=== PATIENT | female | born 2000 | race American Indian/Alaskan Native ===

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

== ENCOUNTER 2021-05-25 07:28 | Emergency (ER) | payer MEDICAID, OTHER ==
[2021-05-25 09:04] LABS: Basophils % (Auto) 0.4 % (0.0-1.8); Eosinophils % (Auto) 0.2 % (0.0-4.3); Hematocrit 27.7 % (30.3-42.9); Hemoglobin 8.7 gm/dl (10.1-14.3); Lymphocytes # (Auto) 1.3 K/mm3 (1.2-5.4); Lymphocytes % (Auto) 13.9 % (13.4-35.0); Mean Corpuscular HGB Conc 31 % (30-34); Monocytes # (Auto) 0.7 K/mm3 (0.0-0.8); Monocytes % (Auto) 7.6 % (0.0-7.3); Platelet Count 225 K/mm3 (140-440); Red Blood Count 4.01 M/mm3 (3.65-5.03); Red Cell Distribution Width 19.1 % (13.2-15.2)
[2021-05-25 09:11] LABS: Mean Corpuscular Volume 69 fl (79-97)
[2021-05-25 09:20] LABS: Bacteria,Urine 1+ /HPF (Negative); Bilirubin,Urine NEG (Negative); Blood,Urine MOD (Negative); Color,Urine Yellow (Yellow); Mucus,Urine FEW /HPF; Urobilinogen,Urine < 2.0 mg/dL (<2.0)
[2021-05-25 09:22] LABS: WBC,Urine > 182.0 /HPF (0.0-6.0)
[2021-05-25 09:26] LABS: HCG Qualitative,Urine Positive (Negative)
[2021-05-25 09:28] LABS: Alanine Aminotransferase 11 units/L (7-56); Albumin 4.5 g/dL (3.9-5); Blood Urea Nitrogen 5 mg/dL (7-17); Calcium 9.3 mg/dL (8.4-10.2); Hemolysis Index 2
[2021-05-25 09:39] LABS: BUN/Creatinine Ratio 8
--- NOTE | 2021-05-25 09:40 | Emergency Department Report ---
ED HPI - General Chief complaint: Abdominal Pain Stated complaint: , ABD PAIN, BACK PAIN Time Seen by Provider: 05/25/21 08:24 Source: patient Mode of arrival: Ambulatory Limitations: No Limitations - History of Present Illness Initial comments: 21-year-old -[place] female patient presents with complaints of sudden onset of lower abdominal pain and vomiting last night. She states she had a positive test at home and estimates she is 4 weeks . She is not currently following with an RIGGER. She rates her current pain as a 10/10 in severity and states it is worse on the left left lower abdomen. Patient is G2, . Patient does admit to some vaginal spotting a few days ago. She also states she has had vaginal discharge and dyspareunia. No dysuria/hematuria or urinary frequency per patient. Past medical history includes CHF, AR, and open heart surgery. No hematemesis/coffee-ground emesis or stool changes per patient. MD Complaint: abdominal pain - Related Data Previous Rx's Medication Instructions Recorded Last Taken Type Ferrous Sulfate [Feosol 325 MG tab] 325 mg PO BID 30 Days #60 tablet 09/23/19 Unknown Rx Hyoscyamine Subl [Levsin Sl 0.125 0.125 mg SL Q4HR PRN #20 tablet 05/27/20 Unknown Rx TAB] Ondansetron [Zofran ODT TAB] 4 mg PO Q8HR #30 tab.rapdis 05/27/20 Unknown Rx Ketorolac [Toradol] 10 mg PO Q6H PRN #15 tablet 08/12/20 Unknown Rx Linezolid 600 mg PO BID #20 tablet 08/30/20 Unknown Rx oxyCODONE /ACETAMINOPHEN [Percocet 1 tab PO Q6HR PRN #14 tablet 08/30/20 Unknown Rx 5/325] Acetaminophen/Codeine [Tylenol 1 tab PO Q8H PRN #8 tab 05/25/21 Unknown Rx /Codeine # 3 tab] Clindamycin [Clindamycin CAP] 450 mg PO Q6HR 14 Days #224 capsule 05/25/21 Unknown Rx Allergies Allergy/AdvReac Type Severity Reaction Status Date / Time No Known Allergies Allergy Verified 08/25/19 23:18 ED Review of Systems ROS: Stated complaint: , ABD PAIN, BACK PAIN Other details as noted in HPI Constitutional: denies: chills, diaphoresis, fever, malaise, weakness Respiratory: denies: cough, shortness of breath Cardiovascular: denies: chest pain Gastrointestinal: abdominal pain, nausea, vomiting. denies: diarrhea, constipation, hematemesis, melena, hematochezia Genitourinary: discharge, abnormal menses, dyspareunia. denies: urgency, dysuria, frequency, hematuria Musculoskeletal: denies: back pain Skin: denies: rash, lesions Hematological/Lymphatic: denies: swollen glands ED Past Medical Hx - Past Medical History Hx Hypertension: Yes Hx Heart Attack/AMI: Yes (2000) Hx Congestive Heart Failure: Yes (2000) Hx Diabetes: No Hx Deep Vein Thrombosis: No Hx Renal Disease: No Hx Sickle Cell Disease: No Hx Seizures: No Hx Asthma: No Hx COPD: No Hx HIV: No Additional medical history: heart surgery - Surgical History Additional Surgical History: Open heart surgery - Social History Smoking Status: Never Smoker Substance Use Type: None - Medications Home Medications: Home Medications Medication Instructions Recorded Confirmed Last Taken Type Ferrous Sulfate [Feosol 325 MG tab] 325 mg PO BID 30 Days #60 tablet 09/23/19 08/29/20 Unknown Rx Hyoscyamine Subl [Levsin Sl 0.125 0.125 mg SL Q4HR PRN #20 tablet 05/27/20 08/29/20 Unknown Rx TAB] Ondansetron [Zofran ODT TAB] 4 mg PO Q8HR #30 tab.rapdis 05/27/20 08/29/20 Unknown Rx Ketorolac [Toradol] 10 mg PO Q6H PRN #15 tablet 08/12/20 08/29/20 Unknown Rx Linezolid 600 mg PO BID #20 tablet 08/30/20 Unknown Rx oxyCODONE /ACETAMINOPHEN [Percocet 1 tab PO Q6HR PRN #14 tablet 08/30/20 Unknown Rx 5/325] Acetaminophen/Codeine [Tylenol 1 tab PO Q8H PRN #8 tab 05/25/21 Unknown Rx /Codeine # 3 tab] Clindamycin [Clindamycin CAP] 450 mg PO Q6HR 14 Days #224 capsule 05/25/21 Unknown Rx ED Physical Exam - General Limitations: No Limitations General appearance: alert, in no apparent distress (Patient does appear uncomfortable) - Head Head exam: Present: atraumatic, normocephalic - Eye Eye exam: Present: normal appearance. Absent: scleral icterus - Respiratory Respiratory exam: Present: normal lung sounds bilaterally. Absent: respiratory distress - Cardiovascular Cardiovascular Exam: Present: regular rate, normal rhythm - GI/Abdominal GI/Abdominal exam: Present: soft, tenderness (Suprapubic, worse on the left), normal bowel sounds. Absent: distended, guarding, rebound, rigid - External exam: Present: normal external exam Speculum exam: Present: vaginal discharge, cervical discharge (Greenish copious discharge noted). Absent: vaginal bleeding Bi-manual exam: Present: cervical motion tendernes - Back Exam Back exam: Present: full ROM. Absent: CVA tenderness (R), CVA tenderness (L) - Neurological Exam Neurological exam: Present: alert, oriented X3 - Psychiatric Psychiatric exam: Present: normal affect, normal mood - Skin Skin exam: Present: warm, dry, intact, normal color. Absent: rash, cyanosis, diaphoretic, erythema ED Course Vital Signs 05/25/21 08:14 Temperature 98.3 F Pulse Rate 92 H Respiratory 18 Rate Blood Pressure 109/64 [Right] O2 Sat by Pulse 98 Oximetry ED Medical Decision Making - Lab Data Result diagrams: 05/25/21 08:29 05/25/21 08:29 Lab Results 05/25/21 05/25/21 05/25/21 Range/Units 08:29 08:29 08:29 WBC 9.4 (4.5-11.0) K/mm3 RBC 4.01 (3.65-5.03) M/mm3 Hgb 8.7 L (10.1-14.3) gm/dl Hct 27.7 L (30.3-42.9) % MCV 69 L (79-97) fl MCH 22 L (28-32) pg MCHC 31 (30-34) % RDW 19.1 H (13.2-15.2) % Plt Count 225 (140-440) K/mm3 Lymph % (Auto) 13.9 (13.4-35.0) % [place]field % (Auto) 7.6 H (0.0-7.3) % Eos % (Auto) 0.2 (0.0-4.3) % Baso % (Auto) 0.4 (0.0-1.8) % Lymph # (Auto) 1.3 (1.2-5.4) K/mm3 Whitfield # (Auto) 0.7 (0.0-0.8) K/mm3 Eos # (Auto) 0.0 (0.0-0.4) K/mm3 Baso # (Auto) 0.0 (0.0-0.1) K/mm3 Seg Neutrophils % 77.9 H (40.0-70.0) % Seg Neutrophils # 7.4 (1.8-7.7) K/mm3 Sodium 139 (137-145) mmol/L Potassium 4.0 (3.6-5.0) mmol/L Chloride 105.4 (98-107) mmol/L Carbon Dioxide 23 (22-30) mmol/L Anion Gap 15 mmol/L BUN 5 L (7-17) mg/dL Creatinine 0.6 (0.6-1.2) mg/dL Estimated GFR > 60 ml/min BUN/Creatinine Ratio 8 % Glucose 91 (65-100) mg/dL Calcium 9.3 (8.4-10.2) mg/dL Total Bilirubin 0.30 (0.1-1.2) mg/dL AST 24 (5-40) units/L ALT 11 (7-56) units/L Alkaline Phosphatase 61 (35-129) units/L Total Protein 7.6 (6.3-8.2) g/dL Albumin 4.5 (3.9-5) g/dL Albumin/Globulin Ratio 1.5 % HCG, Quant 523.1 H (0-4) mIU/mL Urine Color (Yellow) Urine Turbidity (Clear) Urine pH (5.0-7.0) Ur Specific [place] (1.003-1.030) Urine Protein (Negative) mg/dL Urine Glucose (UA) (Negative) mg/dL Urine Ketones (Negative) mg/dL Urine Blood (Negative) Urine Nitrite (Negative) Urine Bilirubin (Negative) Urine Urobilinogen (<2.0) mg/dL Ur Leukocyte Esterase (Negative) Urine WBC (Auto) (0.0-6.0) /HPF Urine RBC (Auto) (0.0-6.0) /HPF U Epithel Cells (Auto) (0-13.0) /HPF Urine Bacteria (Auto) (Negative) /HPF Urine Mucus /HPF Urine HCG, Qual (Negative) 05/25/21 Range/Units Unknown WBC (4.5-11.0) K/mm3 RBC (3.65-5.03) M/mm3 Hgb (10.1-14.3) gm/dl Hct (30.3-42.9) % MCV (79-97) fl MCH (28-32) pg MCHC (30-34) % RDW (13.2-15.2) % Plt Count (140-440) K/mm3 Lymph % (Auto) (13.4-35.0) % Whitfield % (Auto) (0.0-7.3) % Eos % (Auto) (0.0-4.3) % Baso % (Auto) (0.0-1.8) % Lymph # (Auto) (1.2-5.4) K/mm3 Whitfield # (Auto) (0.0-0.8) K/mm3 Eos # (Auto) (0.0-0.4) K/mm3 Baso # (Auto) (0.0-0.1) K/mm3 Seg Neutrophils % (40.0-70.0) % Seg Neutrophils # (1.8-7.7) K/mm3 Sodium (137-145) mmol/L Potassium (3.6-5.0) mmol/L Chloride (98-107) mmol/L Carbon Dioxide (22-30) mmol/L Anion Gap mmol/L BUN (7-17) mg/dL Creatinine (0.6-1.2) mg/dL Estimated GFR ml/min BUN/Creatinine Ratio % Glucose (65-100) mg/dL Calcium (8.4-10.2) mg/dL Total Bilirubin (0.1-1.2) mg/dL AST (5-40) units/L ALT (7-56) units/L Alkaline Phosphatase (35-129) units/L Total Protein (6.3-8.2) g/dL Albumin (3.9-5) g/dL Albumin/Globulin Ratio % HCG, Quant (0-4) mIU/mL Urine Color Yellow (Yellow) Urine Turbidity Cloudy (Clear) Urine pH 6.0 (5.0-7.0) Ur Specific [place] 1.014 (1.003-1.030) Urine Protein 100 mg/dl (Negative) mg/dL Urine Glucose (UA) Neg (Negative) mg/dL Urine Ketones Neg (Negative) mg/dL Urine Blood Mod (Negative) Urine Nitrite Pos (Negative) Urine Bilirubin Neg (Negative) Urine Urobilinogen < 2.0 (<2.0) mg/dL Ur Leukocyte Esterase Lg (Negative) Urine WBC (Auto) > 182.0 H (0.0-6.0) /HPF Urine RBC (Auto) 45.0 (0.0-6.0) /HPF U Epithel Cells (Auto) 3.0 (0-13.0) /HPF Urine Bacteria (Auto) 1+ (Negative) /HPF Urine Mucus Few /HPF Urine HCG, Qual Positive A (Negative) - Radiology Data Radiology results: report reviewed ULTRASOUND OBSTETRIC INDICATION / CLINICAL INFORMATION: pain in . Clinical Gestational Age (GA) in weeks, days: 7, 6 TECHNIQUE: Transabdominal and Transvaginal. COMPARISON: None available. FINDINGS: No intrauterine is visualized. The endometrial stripe measures 4.1 cm. ADNEXA: No significant abnormality. FREE FLUID: There is minimal free fluid ADDITIONAL FINDINGS: None. IMPRESSION: 1. No intrauterine is seen at this time. This may simply represent a very early IUP. Based upon this ultrasound alone, ectopic cannot be excluded though there is no convincing evidence for ectopic. Correlation with serial serum beta-hCG levels is recommended. Follow-up ultrasound should be obtained as clinically warranted. - Medical Decision Making 21-year-old -[place] female patient presents with complaints of sudden onset of lower abdominal pain and vomiting last night. She states she had a positive test at home and estimates she is 4 weeks . She is not currently following with an RIGGER. She rates her current pain as a 10/10 in severity and states it is worse on the left left lower abdomen. Patient is G2, . Patient does admit to some vaginal spotting a few days ago. She also states she has had vaginal discharge and dyspareunia. No dysuria/hematuria or urinary frequency per patient. Past medical history includes CHF, AR, and o pen heart surgery. No hematemesis/coffee-ground emesis or stool changes per patient. Cervical motion tenderness noted on exam with copious green discharge. Wet prep is positive for BV and negative for trichomonas. White count is normal CBC and patient is afebrile and nontachycardic. UA also shows >182 WBCs. Will treat for PID and UTI. Patient discussed with Dr. Kilgore, RIGGER who states patient can be treated on an outpatient basis with clindamycin and recommends azithromycin and Rocephin here in ED. clindamycin will also cover the patient's UTI and BV. Patient to follow-up with RIGGER within 2 days. She is nontoxic-appearing and stable for discharge home. Strict return precautions were discussed in detail with patient who verbalizes understanding. Critical care attestation.: If time is entered above; I have spent that time in minutes in the direct care of this critically ill patient, excluding procedure time. ED Disposition Clinical Impression: Bacterial vaginosis in , UTI in , PID (pelvic inflammatory disease), Anemia Disposition: - TO HOME OR SELFCARE Is pt being admited?: No Condition: Stable Instructions: Abdominal Pain (ED), Bacterial Vaginosis (ED), Pelvic Inflammatory Disease, [id number], Bacterial Vaginosis, and Urinary Tract Infection Additional Instructions: Please take a daily vitamin with iron Follow-up with your RIGGER within 2 days Prescriptions: Clindamycin [Clindamycin CAP] 450 mg PO Q6HR 14 Days #224 capsule Acetaminophen/Codeine [Tylenol /Codeine # 3 tab] 1 tab PO Q8H PRN #8 tab PRN Reason: Pain , Severe (7-10) Referrals: YISEL KILGORE JR, MD [Staff Physician] - 05/27/21 Forms: STI Treatment and Prevention
[2021-05-25] MEDS ORDERED: METOCLOPRAMIDE 10 MG/2 ML INJ IV ONE (09:44)
[2021-05-25] MEDS ORDERED: diphenhydrAMINE 50 MG/ML VIAL IV ONE (09:44)
[2021-05-25] MEDS ORDERED: MORPHINE 4 MG/1 ML INJ IV ONE (09:44)
[2021-05-25] MEDS ORDERED: ACETAMINOPHEN 500 MG TAB PO STA (10:48)
--- NOTE | 2021-05-25 11:21 | Ultrasound Report ---
ULTRASOUND OBSTETRIC INDICATION / CLINICAL INFORMATION: pain in . Clinical Gestational Age (GA) in weeks, days: 7, 6 TECHNIQUE: Transabdominal and Transvaginal. COMPARISON: None available. FINDINGS: No intrauterine is visualized. The endometrial stripe measures 4.1 cm. ADNEXA: No significant abnormality. FREE FLUID: There is minimal free fluid ADDITIONAL FINDINGS: None. IMPRESSION: 1. No intrauterine is seen at this time. This may simply represent a very early IUP. Based upon this ultrasound alone, ectopic cannot be excluded though there is no convincing eviden ce for ectopic. Correlation with serial serum beta-hCG levels is recommended. Follow-up ultrasound sh ould be obtained as clinically warranted. Signer Name: Demarcus Alba MD Signed: 05/25/2021 11:17 AM Workstation Name: [id number]
[2021-05-25] MEDS ORDERED: AZITHROMYCIN 250 MG TAB PO ONE (12:01)
[2021-05-25] MEDS ORDERED: LIDOCAINE-MPF (1%) 10 MG/1 ML VIAL 5 ML INFILTRATI ONE (12:01)
[2021-05-25] MEDS ORDERED: oxyCODONE 5 MG TAB PO ONE (12:04)
[2021-05-25] MEDS ORDERED: ACETAMINOPHEN W/CODEINE 300-30 MG TAB PO ONE (12:04)
[2021-05-25 14:09] VITALS: BP 111/71
--- NOTE | 2021-05-29 11:15 | Emergency Department Report ---
Blank Doc - Documentation Documentation: Message to left for provider to call back patient as she was being treated for PID with clindamycin patient states that she is allergic causes a allover rash that villeda. Patient reports she has been with told to take Bactrim and patient read that if formation in the pamphlet and it said that it is not safe during . This provider reviewed patient's chart looked at her serology and it shows that she is positive for chlamydia. Discussed with Dr. Cornell we agreed that placing patient on a azithromycin will be appropriate. Medication will be called into [facility] on [address] at [phone]. I also discussed the patient that her iron level was low and that she needs to start her vitamins with iron is very important that she follows up with a TUBE CARRIER in the next 3 to 4 days. Patient verbalized understanding.
== END 2021-05-25 13:57 | disposition home or self-care (01) ==
LOC: ED 07:28
DX: O23.591 Infection of other part of genital tract in pregnancy, first trimester (principal); B96.89 Other specified bacterial agents as the cause of diseases classified elsewhere; O23.41 Unspecified infection of urinary tract in pregnancy, first trimester; O99.011 Anemia complicating pregnancy, first trimester; I10 Essential (primary) hypertension; Z79.899 Other long term (current) drug therapy; Z3A.01 Less than 8 weeks gestation of pregnancy
CPT/HCPCS: 36415; 76801; 76817; 80053; 81001; 81025; 84702; 85025; 86900; 86901; 87086; 87210; 87591; 96372; 96374; 96375; 99285; J0696; J1200; J2270; J2765

== ENCOUNTER 2021-10-15 16:39 | Outpatient (CLI) | payer MEDICAID ==
[2021-10-15] MEDS ORDERED: LACTATED RINGERS 500 ML IV ONE (17:15)
--- NOTE | 2021-10-15 18:10 | Ultrasound Report ---
US OB limited INDICATION: RULE OUT PLACENTAL ABRUPTION/PREVIA. COMPARISON: OB ultrasound from 05/25/2021. FINDINGS: A single live intrauterine is seen in cephalic presentation with a heart rate measuring 143 bpm. The placenta is in the right lateral position and is grade 1. No evidence of abruption or previ a. IMPRESSION: No sonographic evidence of placenta previa/abruption. Signer Name: Hugh Mortensen MD Signed: 10/15/2021 6:05 PM Workstation Name: [id number]
[2021-10-15 18:15] LABS: Basophils % (Auto) 0.6 % (0.0-1.8); Eosinophils % (Auto) 0.2 % (0.0-4.3); Hematocrit 27.1 % (30.3-42.9); Lymphocytes # (Auto) 1.3 K/mm3 (1.2-5.4); Lymphocytes % (Auto) 16.9 % (13.4-35.0); Mean Corpuscular HGB Conc 30 % (30-34); Monocytes # (Auto) 0.6 K/mm3 (0.0-0.8); Monocytes % (Auto) 8.4 % (0.0-7.3); Platelet Count 254 K/mm3 (140-440); Red Blood Count 4.15 M/mm3 (3.65-5.03)
[2021-10-15 18:20] LABS: Mean Corpuscular Volume 65 fl (79-97)
[2021-10-15 18:21] LABS: Red Cell Distribution Width 20.2 % (13.2-15.2)
[2021-10-15 18:23] LABS: Bilirubin,Urine NEG (Negative); Blood,Urine NEG (Negative); Color,Urine Yellow (Yellow); Protein,Urine <15 mg/dL mg/dL (Negative); RBC,Urine < 1.0 /HPF (0.0-6.0); Urobilinogen,Urine < 2.0 mg/dL (<2.0)
[2021-10-15 18:30] LABS: Amphetamine Screen,Urine Negative; Benzodiazepines Screen,Urine Negative; Cocaine Screen,Urine Negative; Methadone Screen,Urine Negative; Opiate Screen,Urine Negative
[2021-10-15 18:54] LABS: Cannabinoid Screen,Urine Positive
[2021-10-15 19:04] VITALS: BP 89/59
[2021-10-15] MEDS ORDERED: ACETAMINOPHEN 500 MG TAB PO ONE (20:00)
== END 2021-10-15 19:15 | disposition home or self-care (01) ==
LOC: TRG 16:39 → APU 16:41 → TRG 19:15
PROVIDERS: ATTEND Obstetrics & Gynecology
DX: O46.92 Antepartum hemorrhage, unspecified, second trimester (principal); O26.892 Other specified pregnancy related conditions, second trimester; R10.9 Unspecified abdominal pain; Z3A.25 25 weeks gestation of pregnancy
CPT/HCPCS: 36415; 76815; 80307; 81001; 85025; J7120; 96360; J3490